=== PATIENT | male | born 2005 | race Two or more races ===

== ENCOUNTER 2023-08-04 23:20 | Emergency (ER) | payer SELFPAY ==
[2023-08-04 23:28] VITALS: BP 136/76; PULSE 88; TEMP 37.4; O2SAT 99; BMI 20.6
--- NOTE | 2023-08-04 23:35 | XR_ITS ---
[place] [id number] Patient Name: JUJU BEDOYA MRN: [id number] date: 2005 Sex: M Assigned Patient Location: ER Current Patient Location: ED.MAIN Accession/Order Number: [id number] Exam Date: 08/04/2023 23:55 Report Date: 08/05/2023 00:28 At the request of: ELIUD SCHRADER Procedure: XR ankle RT min 3V XR tibia fibula RT 2V, XR foot RT min 3V, XR ankle RT min 3V 08/04/2023 11:55 PM EDT CLINICAL INDICATION: Trauma COMPARISON: None. TECHNIQUE: 2 views of the right tibia and fibula. 3 views of the right ankle. 3 views of the right foot. FINDINGS: Right tibia and fibula Minimally displaced extra-articular spiral fracture of the right distal tibial shaft. Mild medial soft tissue edema. Right ankle Minimally displaced extra-articular spiral fracture of the right distal tibial shaft. Joint spaces appear maintained. Small tibiotalar joint effusion and anterior edema of the distal foreleg. Right foot The bones are intact. The alignment is anatomic. The joints are maintained. The soft tissues are grossly unremarkable. XR/XR ankle RT min 3V IMPRESSION: Minimally displaced extra articular spiral fracture of the right distal tibial shaft. Small tibiotalar joint effusion. No acute osseous abnormality of the right foot. Electronically authenticated by: ADAIR TANNER Date: 08/05/2023 00:28
--- NOTE | 2023-08-04 23:35 | XR_ITS ---
[place] [id number] Patient Name: JUJU BEDOYA MRN: [id number] date: 2005 Sex: M Assigned Patient Location: ER Current Patient Location: ED.MAIN Accession/Order Number: [id number] Exam Date: 08/04/2023 23:55 Report Date: 08/05/2023 00:28 At the request of: ELIUD SCHRADER Procedure: XR foot RT min 3V XR tibia fibula RT 2V, XR foot RT min 3V, XR ankle RT min 3V 08/04/2023 11:55 PM EDT CLINICAL INDICATION: Trauma COMPARISON: None. TECHNIQUE: 2 views of the right tibia and fibula. 3 views of the right ankle. 3 views of the right foot. FINDINGS: Right tibia and fibula Minimally displaced extra-articular spiral fracture of the right distal tibial shaft. Mild medial soft tissue edema. Right ankle Minimally displaced extra-articular spiral fracture of the right distal tibial shaft. Joint spaces appear maintained. Small tibiotalar joint effusion and anterior edema of the distal foreleg. Right foot The bones are intact. The alignment is anatomic. The joints are maintained. The soft tissues are grossly unremarkable. XR/XR foot RT min 3V IMPRESSION: Minimally displaced extra articular spiral fracture of the right distal tibial shaft. Small tibiotalar joint effusion. No acute osseous abnormality of the right foot. Electronically authenticated by: ADAIR TANNER Date: 08/05/2023 00:28
--- NOTE | 2023-08-04 23:36 | PC.NURSE ---
Slight redness noted to right adames
--- NOTE | 2023-08-04 23:57 | XR_ITS ---
The [place] [id number] Patient Name: JUJU BEDOYA MRN: [id number] date: 2005 Sex: M Assigned Patient Location: ER Current Patient Location: ED.MAIN Accession/Order Number: [id number] Exam Date: 08/04/2023 23:55 Report Date: 08/05/2023 00:28 At the request of: ELIUD SCHRADER Procedure: XR tibia fibula RT 2V XR tibia fibula RT 2V, XR foot RT min 3V, XR ankle RT min 3V 08/04/2023 11:55 PM EDT CLINICAL INDICATION: Trauma COMPARISON: None. TECHNIQUE: 2 views of the right tibia and fibula. 3 views of the right ankle. 3 views of the right foot. FINDINGS: Right tibia and fibula Minimally displaced extra-articular spiral fracture of the right distal tibial shaft. Mild medial soft tissue edema. Right ankle Minimally displaced extra-articular spiral fracture of the right distal tibial shaft. Joint spaces appear maintained. Small tibiotalar joint effusion and anterior edema of the distal foreleg. Right foot The bones are intact. The alignment is anatomic. The joints are maintained. The soft tissues are grossly unremarkable. XR/XR tibia fibula RT 2V IMPRESSION: Minimally displaced extra articular spiral fracture of the right distal tibial shaft. Small tibiotalar joint effusion. No acute osseous abnormality of the right foot. Electronically authenticated by: ADAIR TANNER Date: 08/05/2023 00:28
--- NOTE | 2023-08-05 00:07 | ED.LOWEXI1 ---
HPI HPI - Extremity Injury (Lower) General Chief Complaint: Extremity Injury, Lower Stated Complaint: lower extrimity injury right foot Time Seen by Provider: 08/04/23 23:35 Source: patient Mode of arrival: Wheelchair Limitations: no limitations History of Present Illness HPI Narrative: history limited by language. Fell out of a tree yesterday of this AM and has pain of the right ankle. Not able to bear weight . Denies other injury or complaint. No back pain, hip or knee pain.Denies injury to his arms or chest Related Data Allergies Allergy/AdvReac Type Severity Reaction Status Date / Time No Known Drug Allergies Allergy Verified 08/04/23 23:28 Opioid HPI Opioid Management Most Recent Pain and Opioid Data: Last Pain Scale 4 08/04/23 23:37 Last ED Pain Assessment 08/04/23 23:37 Review of Systems ROS Status of ROS other (limited by language) Exam Constitutional Vital Signs, click to edit/add: Last Vital Signs Temp 99.4 F 08/04/23 23:28 Pulse 88 08/04/23 23:28 Resp 18 08/04/23 23:28 BP 136/76 08/04/23 23:28 Pulse Ox 99 08/04/23 23:28 O2 Del Method Room Air 08/04/23 23:28 Common normals: no apparent distress, average body habitus, healthy appearing, alert and well nourished [facility] Common normals: normocephalic and head/scalp atraumatic Eye Common normals: EOMs intact bilaterally and conjunctivae normal Chest Common normals: inspection of chest normal and palpation of chest normal Respiratory Common normals: normal respiratory effort, no retractions, no use of accessory muscles and clear to auscultation bilaterally Cardio Common normals: regular rate, regular rhythm, S1 normal heart sound and S2 normal heart sound GI Common normals: Normal to inspection, nondistended, normoactive bowel sounds present, soft to palpation and non-tender Back & Pelvis Common normals: no CVA tenderness, thoracic and lumbar spine normal to inspection and no thoracic nor lumbar tenderness Extremity Other: right ankle with mild swelling. mild swelling distal right leg. mild swelling right foot and heel Neuro Common normals: moves all extremities and no focal motor deficits Psych Appearance: grossly normal Course Vital Signs Vital signs: Vital Signs Temperature 99.4 F 08/04/23 23:28 Pulse Rate 88 08/04/23 23:28 Respiratory Rate 18 08/04/23 23:28 Blood Pressure 136/76 08/04/23 23:28 Pulse Oximetry 99 08/04/23 23:28 Oxygen Delivery Method Room Air 08/04/23 23:28 Temperature 99.4 F 08/04/23 23:28 Pulse Rate 88 08/04/23 23:28 Respiratory Rate 18 08/04/23 23:28 Blood Pressure 136/76 08/04/23 23:28 Pulse Oximetry 99 08/04/23 23:28 Oxygen Delivery Method Room Air 08/04/23 23:28 MDM - Extremity Injury (Lower) MDM Narrative Medical decision making narrative: patient fell. We thought it was yesterday but another family member came in to interpret. Turns out he fell from the Tree 3 days ago and has been in bed because of the pain. xray with spiral fracture distal tibia. Patient placed in a splint and discharged with crutches. given phone number to contact orthopedics Discharge Plan Discharge Stand Alone Forms: Portal Instructions Chief Complaint: Extremity Injury, Lower Clinical Impression: Fracture of right tibia Patient Disposition: Home, Self-Care Print Language: Uzbek Instructions: Leg Fracture (ED) Additional Instructions: follow up with orthopedics. Keep leg elevated. No weight Referrals: Physician,Non-Staff, MD [Primary Care Provider] - 1 week Procedures ED Procedure Instructions Procedures Procedures: spiral fracture distal tibia. fiber glass material and extra padding use to form a posterior ankle splint RLE. tolerated well. N/V post procedure WNL
[2023-08-05] MEDS: IBUPROFEN 400 MG TABLET 800 MG PO (00:36)
== END 2023-08-05 00:55 | disposition home or self-care (01) ==
PROVIDERS: Emergency Provider Internal Medicine
DX: S82.301A Unspecified fracture of lower end of right tibia, initial encounter for closed fracture (principal); W17.89XA Other fall from one level to another, initial encounter
CPT/HCPCS: 29515; 73590; 73610; 73630; 99284

== ENCOUNTER 2023-08-07 13:03 | Outpatient (OUT) | payer SELFPAY ==
--- NOTE | 2023-08-07 | XR_ITS ---
The [address] [address] Patient Name: JUJU BEDOYA MRN: [id number] date: 2005 Sex: M Assigned Patient Location: Current Patient Location: Accession/Order Number: [id number] Exam Date: 08/07/2023 13:05 Report Date: 08/08/2023 09:22 At the request of: KEYSHA FELIX Procedure: XR tibia fibula RT 2V PROCEDURE: XR tibia fibula RT 2V COMPARISON: 08/04/2023 HISTORY: LEFT TIB FIB PAIN FINDINGS: BONES:Stable spiral fracture distal tibial diaphysis with suspected extension to the articular surface. Stable 2 mm displacement with no significant angulation. No additional fracture is observed SOFT TISSUES:Negative. No visible soft tissue swelling. EFFUSION:None visible. OTHER: Interval casting XR/XR tibia fibula RT 2V IMPRESSION: Interval casting of a stable spiral fracture of the distal tibia with suspected extension to the articular surface Electronically authenticated by: NELI SERVIN Date: 08/08/2023 09:22
== END 2023-08-07 13:04 | disposition home or self-care (01) ==
LOC: EC 13:03
PROVIDERS: Visit Provider Orthopaedic Surgery
DX: M89.8X6 Other specified disorders of bone, lower leg (principal); S89.191D Other physeal fracture of lower end of right tibia, subsequent encounter for fracture with routine healing
CPT/HCPCS: 73590

== ENCOUNTER 2023-08-14 10:45 | Outpatient (OUT) | payer SELFPAY ==
--- NOTE | 2023-08-14 | XR_ITS ---
The [address] [address] Patient Name: JUJU BEDOYA MRN: [id number] date: 2005 Sex: M Assigned Patient Location: Current Patient Location: Accession/Order Number: [id number] Exam Date: 08/14/2023 10:52 Report Date: 08/14/2023 14:12 At the request of: KEYSHA FELIX Procedure: XR tibia fibula RT 2V PROCEDURE: XR tibia fibula RT 2V COMPARISON: 08/07/2023 HISTORY: RIGHT LOWER LEG PAIN FINDINGS: BONES:Stable spiral fracture of the distal tibial diaphysis likely extending to the articular surface. No significant bone formation or periosteal reaction is observed. Stable alignment with distraction up to 4 mm. No new fracture or dislocation SOFT TISSUES:Negative. No visible soft tissue swelling. EFFUSION:None visible. OTHER: Bone detail is obscured by a fiberglass cast XR/XR tibia fibula RT 2V IMPRESSION: Stable spiral likely intra-articular fracture of the distal tibia Electronically authenticated by: NELI SERVIN Date: 08/14/2023 14:12
== END 2023-08-14 10:46 | disposition home or self-care (01) ==
LOC: EC 10:45
PROVIDERS: Visit Provider Orthopaedic Surgery
DX: S82.871D Displaced pilon fracture of right tibia, subsequent encounter for closed fracture with routine healing (principal)
CPT/HCPCS: 73590

== ENCOUNTER 2023-08-21 12:06 | Outpatient (OUT) | payer SELFPAY ==
--- NOTE | 2023-08-21 | XR_ITS ---
[address] [address] Patient Name: JUJU BEDOYA MRN: [id number] date: 2005 Sex: M Assigned Patient Location: Current Patient Location: Accession/Order Number: [id number] Exam Date: 08/21/2023 12:10 Report Date: 08/22/2023 07:45 At the request of: KEYSHA FELIX Procedure: XR tibia fibula RT 2V PROCEDURE: XR tibia fibula RT 2V COMPARISON: 08/14/2023 HISTORY: RIGHT LOWER LEG PAIN FINDINGS: BONES:Stable spiral fracture of the distal tibia extending to the medial malleolus. Distraction up to 3 mm. No significant angulation. No significant interval bone formation or bony bridging. No periosteal reaction. No new fracture or dislocation. SOFT TISSUES:Negative. No visible soft tissue swelling. EFFUSION:None visible. OTHER: Negative. XR/XR tibia fibula RT 2V IMPRESSION: Stable spiral fracture of the distal tibia Electronically authenticated by: NELI SERVIN Date: 08/22/2023 07:45
== END 2023-08-21 12:07 | disposition home or self-care (01) ==
LOC: EC 12:06
PROVIDERS: Visit Provider Orthopaedic Surgery
DX: S82.871D Displaced pilon fracture of right tibia, subsequent encounter for closed fracture with routine healing (principal)
CPT/HCPCS: 73590

== ENCOUNTER 2023-09-11 10:05 | Outpatient (OUT) | payer SELFPAY ==
--- NOTE | 2023-09-11 | XR_ITS ---
The [address] [address] Patient Name: JUJU BEDOYA MRN: [id number] date: 2005 Sex: M Assigned Patient Location: Current Patient Location: Accession/Order Number: [id number] Exam Date: 09/11/2023 10:06 Report Date: 09/11/2023 14:42 At the request of: KEYSHA FELIX Procedure: XR tibia fibula RT 2V PROCEDURE: XR tibia fibula RT 2V HISTORY: RIGHT LOWER LEG PAIN ; follow-up right tibia fracture COMPARISON: XR tibia-fibula right 08/21/2023 FINDINGS: BONES:Spiral fracture of distal tibia with stable alignment and increased density of the fracture lines. Normal alignment is maintained. No appreciable fracture of the fibula. Intact appearance of ankle joint. SOFT TISSUES:No visible soft tissue swelling. EFFUSION:None visible. OTHER: Negative. XR/XR tibia fibula RT 2V IMPRESSION: 1. Interval removal of cast material. 2. Stable, normal alignment with ongoing bone healing of distal right tibia fracture. Electronically authenticated by: KEYSHA SAHA Date: 09/11/2023 14:42
== END 2023-09-11 10:06 | disposition home or self-care (01) ==
LOC: EC 10:05
PROVIDERS: Visit Provider Orthopaedic Surgery
DX: S82.871D Displaced pilon fracture of right tibia, subsequent encounter for closed fracture with routine healing (principal)
CPT/HCPCS: 73590

== ENCOUNTER 2024-08-27 15:33 | Emergency (ER) | payer SELFPAY ==
[2024-08-27 15:38] VITALS: BP 128/61; PULSE 70; TEMP 36.6; O2SAT 99; BMI 25.7
[2024-08-27] MEDS: KETOROLAC TROMETHAMINE 30 MG/ML VIAL 15 MG IVP (16:36)
[2024-08-27 16:47] LABS: Basophils Absolute Auto 0.1 10^3/uL (0.0-0.1); Eosinophils Absolute Auto 0.3 10^3/uL (0.0-0.7); Hematocrit 43.5 % (42.0-54.0); Hemoglobin 15.4 g/dL (14.0-18.0); Immature Granulocytes Abs Auto 0.04 10^3/uL (0.00-0.03); Immature Granulocytes Pct Auto 0.4 % (0.0-0.5); Lymphocytes Absolute Auto 2.6 10^3/uL (1.2-3.8); Mean Corpuscular HGB Conc 35.4 g/dL (29.9-35.2); Mean Corpuscular Hemoglobin 30.3 pg (25.9-34.0); Mean Corpuscular Volume 85.6 fL (80.0-94.0); Mean Platelet Volume 10.1 fL (9.5-13.5); Monocytes Absolute Auto 0.6 10^3/uL (0.3-0.8); Monocytes Percent Auto 6.2 % (1.7-12.0); Neutrophils Absolute Auto 6.3 10^3/uL (1.4-6.5); Neutrophils Percent Auto 63.4 % (43.0-75.0); Platelet Count 240 10^3/uL (150-450); Red Blood Count 5.08 10^6/uL (4.70-6.10); Red Cell Distribution Width 12.2 % (11.0-15.0); White Blood Count 9.9 10^3/uL (4.0-11.0)
[2024-08-27 16:55] LABS: Alanine Aminotransferase 29 U/L (16-63); Albumin Globulin Ratio 1.5; Albumin Level 4.5 g/dL (3.4-5.0); Alkaline Phosphatase 67 U/L (46-116); Anion Gap 7.7; Aspartate Amino Transferase 22 U/L (15-37); Bilirubin Total 0.8 mg/dL (0.2-1.0); Calcium 9.6 mg/dL (8.5-10.1); Chloride 103 mmol/L (98-107); Estimated GFR (African America >60 (>=60 mL/min/1.73m^2); Estimated GFR (Non-African Ame >60 (>=60 mL/min/1.73m^2); Glucose 99 mg/dL (74-106); Potassium 3.7 mmol/L (3.5-5.1); Sodium 138 mmol/L (136-145); Total Protein 7.5 g/dL (6.4-8.2)
[2024-08-27 16:57] LABS: Lactate/Lactic Acid 1.1 mmol/L (0.4-2.0)
--- NOTE | 2024-08-27 17:04 | ED.GENADUL1 ---
HPI HPI - General Adult General Chief complaint: Abdominal Pain Stated complaint: ABDOMINAL PAIN Time Seen by Provider: 08/27/24 16:01 Source: patient Mode of arrival: walk-in Limitations: no limitations History of Present Illness HPI narrative: The patient evaluation as well as management plan and discussion with the patient was done using the type soldering machine tender The patient presented to us with a right sided inguinal hernia that been on 5 years he mentioned that for the last few days he has been feeling that it is more than his usual. He denies any abdominal pain at the moment he mentioned that when he is laying flat he does not have any pain The patient denies any nausea or vomiting as well Related Data Home Medications ?Medication ?Instructions ?Recorded ?Confirmed No Known Home Medications 08/27/24 08/27/24 Allergies Allergy/AdvReac Type Severity Reaction Status Date / Time No Known Drug Allergies Allergy Verified 08/27/24 15:38 Opioid HPI Opioid Management Most Recent Opioid Data: Last Pain Scale 4 08/05/23, 00:36 Review of Systems ROS Status of ROS 10 or more systems reviewed and unremarkable except as noted in history and below PFSH PFSH Social History Little interest or pleasure in doing things: not at all Feeling down, depressed, or hopeless: not at all Exam Narrative Exam Narrative: Nurses notes and vital signs reviewed and patient is not hypoxic. General: Well-appearing and in no apparent distress. Skin: Warm, dry, no pallor noted. No rash. Head: Normocephalic, atraumatic. Neck: Supple, non-tender. Cardiovascular: Regular Rate and Rhythm without murmur, gallop or rub. Respiratory: No accessory muscle use or respiratory distress. Lungs are clear to auscultation, no wheezing, rales or rhonchi Chest Wall: no tenderness Back: No midline thoracic or lumbar vertebral tenderness. No CVA tenderness Musculoskeletal: normal ROM, no calf or popliteal tenderness, no lower extremity edema/swelling GI: Abdomen is soft, non-distended. Normal bowel sounds. No masses appreciated. No tenderness to palpation. No rebound, guarding, or rigidity noted. Inguinal exam: An obvious inguinal hernia on the right side that is reducible and soft I was able to reduce it right away, the testicles are not swollen or any tender Neurological: A&O x4. No cranial nerve dysfunction observed. No truncal ataxia. Moves all extremities. Sensation intact. Psychiatric: Cooperative and interactive. Normal mood and affect. Constitutional Vital Signs, click to edit/add: Last Vital Signs Temp 98 F 08/27/24 15:38 Pulse 74 08/27/24 17:20 Resp 14 08/27/24 17:20 BP 124/82 08/27/24 17:20 Pulse Ox 99 08/27/24 17:20 O2 Del Method Room Air 08/27/24 17:20 Course Vital Signs Vital signs: Vital Signs Temperature 98 F 08/27/24 15:38 Pulse Rate 70 08/27/24 15:38 Respiratory Rate 16 08/27/24 15:38 Blood Pressure 128/61 08/27/24 15:38 Pulse Oximetry 99 08/27/24 15:38 Temperature 98 F 08/27/24 15:38 Pulse Rate 74 08/27/24 17:20 Respiratory Rate 14 08/27/24 17:20 Blood Pressure 124/82 08/27/24 17:20 Pulse Oximetry 99 08/27/24 17:20 Oxygen Delivery Method Room Air 08/27/24 17:20 Medical Decision Making MDM Narrative Medical decision making narrative: I was able to reduce the hernia at the bedside but the patient was still complaining of some mild pain CBC and chemistry showed no acute pathology and the CAT scan shows a fat-containing hernia I did refer the patient to general surgery He was instructed about the importance of coming back in case of increasing pain or any concern that the hernia is stuck right now it is soft and big The patient is to follow up with primary care physician in next 2-3 days or to return to the emergency department should any of the signs or symptoms worsen or new symptoms develop. The patient agrees with the following Diagnosis and Treatment plan and the patient will be discharged home. Lab Data Labs: Lab Results 08/27/24 Range/Units 16:33 WBC 9.9 (4.0-11.0) 10^3/uL RBC 5.08 (4.70-6.10) 10^6/uL Hgb 15.4 (14.0-18.0) g/dL Hct 43.5 (42.0-54.0) % MCV 85.6 (80.0-94.0) fL MCH 30.3 (25.9-34.0) pg MCHC 35.4 H (29.9-35.2) g/dL RDW 12.2 (11.0-15.0) % Plt Count 240 (150-450) 10^3/uL MPV 10.1 (9.5-13.5) fL Neut % (Auto) 63.4 (43.0-75.0) % Lymph % (Auto) 26.0 (20.5-60.0) % [place] % (Auto) 6.2 (1.7-12.0) % Eos % (Auto) 3.0 (0.9-7.0) % Baso % (Auto) 1.0 (0.2-2.0) % Neut # (Auto) 6.3 (1.4-6.5) 10^3/uL Lymph # (Auto) 2.6 (1.2-3.8) 10^3/uL [place] # (Auto) 0.6 (0.3-0.8) 10^3/uL Eos # (Auto) 0.3 (0.0-0.7) 10^3/uL Baso # (Auto) 0.1 (0.0-0.1) 10^3/uL Abs Immat Gran (auto) 0.04 H (0.00-0.03) 10^3/uL Imm/Tot Granulo (auto) 0.4 (0.0-0.5) % Sodium 138 (136-145) mmol/L Potassium 3.7 (3.5-5.1) mmol/L Chloride 103 (98-107) mmol/L Carbon Dioxide 31.0 (21.0-32.0) mmol/L Anion Gap 7.7 BUN 16.0 (7.0-18.0) mg/dL Creatinine 1.07 (0.70-1.30) mg/dL Est GFR ( Amer) >60 (>=60 mL/min/1.73m^2) Est GFR (Non-Af Amer) >60 (>=60 mL/min/1.73m^2) BUN/Creatinine Ratio 15.0 Glucose 99 (74-106) mg/dL Lactate 1.1 (0.4-2.0) mmol/L Calcium 9.6 (8.5-10.1) mg/dL Total Bilirubin 0.8 (0.2-1.0) mg/dL AST 22 (15-37) U/L ALT 29 (16-63) U/L Alkaline Phosphatase 67 (46-116) U/L Total Protein 7.5 (6.4-8.2) g/dL Albumin 4.5 (3.4-5.0) g/dL Globulin 3.0 g/dL Albumin/Globulin Ratio 1.5 Discharge Plan Discharge Chief Complaint: Abdominal Pain Clinical Impression: Inguinal hernia Patient Disposition: Home, Self-Care Time of Disposition Decision: 17:04 Condition: Good Mode of Transportation: Private Vehicle Prescriptions / Home Meds: No Action No Known Home Medications Print Language: Divehi Instructions: Inguinal Hernia (ED) Referrals: Sukh Barcenas MD [Physician, General Surgery] - 1 week Physician,Non-Staff, [Primary Care Provider] - 1 week Discharge Date/Time: 08/27/24 17:20
[2024-08-27 17:20] VITALS: BP 124/82; PULSE 74; O2SAT 99
== END 2024-08-27 17:20 | disposition home or self-care (01) ==
PROVIDERS: Emergency Provider Emergency Medicine
DX: K40.90 Unilateral inguinal hernia, without obstruction or gangrene, not specified as recurrent (principal)
CPT/HCPCS: 36415; 74176; 80053; 83605; 85025; 96374; 99285; J1885